=== PATIENT | male | born 1970 | race Caucasian/White ===

== ENCOUNTER 2020-08-30 09:07 | Outpatient (REF) | payer OTHER, SELFPAY ==
[2020-08-30 10:11] LABS: MANUAL DIFF FLAG NO
[2020-08-30 10:14] LABS: Basophils Percent Auto 0.7 % (0-2); Eosinophils Absolute Auto 0.2 X10*3/uL (0.0-0.4); Eosinophils Percent Auto 4.5 % (0-4); Hemoglobin 14.7 g/dl (14.0-18.0); Imm Gran Abs Auto 0.01 X10*3/uL (0.00-0.03); Imm Gran Pct Auto 0.2 % (0.0-0.4); Lymphocytes Absolute Auto 1.5 X10*3/uL (1.2-4.9); Lymphocytes Percent Auto 36.2 % (20-40); Mean Corpuscular HGB Conc 34.2 g/dl (31.0-36.0); Mean Corpuscular Hemoglobin 32.1 pg (27.0-33.0); Mean Corpuscular Volume 93.9 fL (80-98); Mean Platelet Volume 10.6 fL (9.4-12.4); Monocytes Absolute Auto 0.4 X10*3/uL (0.1-1.2); Monocytes Percent Auto 9.2 % (2-11); Neutrophils Absolute Auto 2.1 X10*3/uL (2.0-8.3); Neutrophils Percent Auto 49.2 % (45-73); Platelet Count 238 X10*3/uL (160-400); Red Blood Count 4.58 X10*6/uL (4.60-5.80); Red Cell Distribution Width 11.8 % (11.0-16.0); White Blood Count 4.3 X10*3/uL (4.8-10.8)
[2020-08-30 10:54] LABS: Glucose Urine UA NEG (NEG); Leukocyte Esterase Urine NEG (NEG); Nitrite Urine NEG (NEG); Specific Gravity - Urine 1.025 (1.005-1.025); Urine Blood NEG (NEG); Urine Ketones NEG (NEG); Urine Protein NEG (NEG-TRACE)
[2020-08-30 10:56] LABS: Alanine Aminotransferase 32 U/L (0-40); Albumin Level 4.4 g/dL (3.5-5.0); Alkaline Phosphatase 84 U/L (39-117); Anion Gap 12 (12-20); Aspartate Amino Transferase 20 U/L (5-37); Bilirubin Total 0.4 mg/dL (0.0-1.0); Blood Urea Nitrogen 12 mg/dL (9-16); Calcium 8.6 mg/dL (8.4-10.2); Carbon Dioxide 25 mmol/L (22-29); Chloride 106 mmol/L (96-108); Cholesterol 223 mg/dL; Estimated Glomerular Filt Rate > 60; Glucose Fasting 113 mg/dL (60-99); HDL Cholesterol 63 mg/dL; LDL Cholesterol Calculated 141 mg/dl; Potassium 4.3 mmol/l (3.3-5.1); Sodium 139 mmol/L (135-145); Total Protein 7.1 g/dL (6.5-8.0); Triglycerides 99 mg/dL
[2020-08-30 10:56] LABS: Appearance Urine CLEAR; Color Urine YELLOW
[2020-08-30 11:22] LABS: Prostate Specific Antigen 0.36 ng/mL (<0.05-4.0)
[2020-09-04 13:57] LABS: Testosterone, Free 98.6 pg/mL (35.0-155.0); Testosterone, Total 472 ng/dL (250-1100)
== END 2020-08-30 09:08 | disposition home or self-care (01) ==
LOC: HO.10HDL 09:07
PROVIDERS: Visit Provider Internal Medicine
DX: Z00.00 Encounter for general adult medical examination without abnormal findings (principal); R30.0 Dysuria; R35.1 Nocturia; Z12.5 Encounter for screening for malignant neoplasm of prostate
CPT/HCPCS: 36415; 80053; 80061; 81003; 84153; 84402; 84403; 85025; 87086

== ENCOUNTER → 2022-07-01 13:40 | Outpatient (BNVA) | payer OTHER, SELFPAY | PROVIDERS: PCP Internal Medicine; Visit Provider Physician Assistant Medical | DX: S64.22XA Injury of radial nerve at wrist and hand level of left arm, initial encounter (principal); W18.39XA Other fall on same level, initial encounter | CPT/HCPCS: 73110; 73130; 99203 ==

== ENCOUNTER → 2022-07-10 09:40 | Outpatient (BNVA) | payer OTHER, SELFPAY | PROVIDERS: PCP Internal Medicine; Visit Provider Internal Medicine | DX: S64.22XA Injury of radial nerve at wrist and hand level of left arm, initial encounter (principal); W18.39XA Other fall on same level, initial encounter | CPT/HCPCS: 99213 ==

== ENCOUNTER → 2022-07-24 09:27 | Outpatient (BNVA) | payer OTHER, SELFPAY | PROVIDERS: PCP Internal Medicine; Visit Provider Internal Medicine | DX: S63.502D Unspecified sprain of left wrist, subsequent encounter (principal); W18.39XD Other fall on same level, subsequent encounter | CPT/HCPCS: 99213 ==

== ENCOUNTER 2022-11-19 09:32 | Outpatient (REF) | payer OTHER, SELFPAY ==
[2022-11-19 10:40] LABS: MANUAL DIFF FLAG NO
[2022-11-19 10:42] LABS: Basophils Percent Auto 0.6 % (0-2); Eosinophils Absolute Auto 0.2 X10*3/uL (0.0-0.4); Hematocrit 43.6 % (42.0-52.0); Imm Gran Abs Auto 0.02 X10*3/uL (0.00-0.03); Imm Gran Pct Auto 0.4 % (0.0-0.4); Lymphocytes Absolute Auto 1.8 X10*3/uL (1.2-4.9); Lymphocytes Percent Auto 38.3 % (20-40); Mean Corpuscular HGB Conc 34.4 g/dl (31.0-36.0); Mean Corpuscular Hemoglobin 31.8 pg (27.0-33.0); Mean Corpuscular Volume 92.4 fL (80.0-98.0); Mean Platelet Volume 10.4 fL (9.4-12.4); Monocytes Absolute Auto 0.5 X10*3/uL (0.1-1.2); Monocytes Percent Auto 10.4 % (2-11); Neutrophils Absolute Auto 2.2 x10*3/uL (2.0-8.3); Neutrophils Percent Auto 46.3 % (45-73); Platelet Count 225 X10*3/uL (160-400); Red Blood Count 4.72 X10*6/uL (4.60-5.80); Red Cell Distribution Width 11.8 % (11.0-16.0); White Blood Count 4.7 X10*3/uL (4.8-10.8)
[2022-11-19 11:51] LABS: Alanine Aminotransferase 39 U/L (0-40); Albumin Level 4.4 g/dL (3.5-5.0); Alkaline Phosphatase 81 U/L (39-117); Anion Gap 16 (12-20); Aspartate Amino Transferase 23 U/L (5-37); Bilirubin Total 0.8 mg/dL (0.0-1.0); Blood Urea Nitrogen 11 mg/dL (9-16); Carbon Dioxide 22 mmol/L (22-29); Chloride 106 mmol/L (96-108); Cholesterol 251 mg/dL; Estimated Glomerular Filt Rate > 60; Glucose Fasting 115 mg/dL (60-99); HDL Cholesterol 59 mg/dL; LDL Cholesterol Calculated 169 mg/dl; Potassium 4.4 mmol/L (3.3-5.1); Sodium 140 mmol/L (135-145); Total Protein 6.8 g/dL (6.5-8.0); Triglycerides 118 mg/dL
[2022-11-19 11:57] LABS: Prostate Specific Antigen Scr 0.46 ng/mL (<0.05-4.0)
== END 2022-11-19 09:33 | disposition home or self-care (01) ==
LOC: HO.10HDL 09:32
PROVIDERS: Visit Provider Internal Medicine
DX: Z00.00 Encounter for general adult medical examination without abnormal findings (principal); Z12.5 Encounter for screening for malignant neoplasm of prostate
CPT/HCPCS: 36415; 80053; 80061; 84153; 85025

== ENCOUNTER 2022-11-20 10:35 | Outpatient (REF) | payer OTHER, SELFPAY ==
--- NOTE | ~2022-11-20 | XR_ITS ---
EXAMINATION: XR CHEST CLINICAL INFORMATION: Rule out lesion COMPARISON: Previous chest x-ray most recent January 2016 TECHNIQUE: 2 views of the chest were obtained. FINDINGS: The cardiac and mediastinal contours are normal. The lungs are clear. No pleural effusion or pneumothorax. Degenerative changes of the spine. XR/XR chest 2V IMPRESSION: No evidence for acute disease in the chest.
== END 2022-11-20 10:36 | disposition home or self-care (01) ==
LOC: HO.XRAY 10:35
PROVIDERS: PCP Internal Medicine; Visit Provider Internal Medicine
DX: Z00.00 Encounter for general adult medical examination without abnormal findings (principal)
CPT/HCPCS: 71046

== ENCOUNTER 2023-01-02 10:09 | Outpatient (REF) | payer OTHER, SELFPAY ==
--- NOTE | ~2023-01-02 | FL_ITS ---
EXAMINATION: FL BARIUM SWALLOW CLINICAL INFORMATION: Dysphagia COMPARISON: None available. TECHNIQUE: Barium swallow examination is performed using fluoroscopic evaluation in addition to multiple fluoroscopic spot views. The patient is imaged both upright and prone and using both thick and thin sulfate along with effervescent granules. Fluoroscopy Time: 1.6 minutes DAP: 13.879 Gycm2 Images: 46 FINDINGS: On clinical palpation, there is a probable nodule at the base of right neck. Recommend ultrasound evaluation to exclude thyroid lesion or nodule.. Following oral administration of thick barium and barium-coated turkey as solid food, there Is normal propagation bolus from the oral cavity through the pharynx, esophagus into stomach without any evidence of obstruction, narrowing or stricture. No extrinsic compression seen. On placing patient prone lying, and oral administration of thin barium, there is good distention of the entire esophagus without narrowing or obstruction. No laryngeal penetration or aspiration seen. There is no retention of barium in the valleculae or piriform sinuses. FL/FL barium swallow IMPRESSION: Unremarkable barium swallow exam.
== END 2023-01-02 10:10 | disposition home or self-care (01) ==
LOC: HO.XRAY 10:09
PROVIDERS: PCP Internal Medicine; Visit Provider Internal Medicine
DX: R13.19 Other dysphagia (principal)
CPT/HCPCS: 74220

== ENCOUNTER 2023-03-17 07:01 | Day surgery (SDC) | payer OTHER, SELFPAY ==
--- NOTE | 2023-03-16 13:39 | HO.ANESPROP2 ---
HPI - Anesthesia Eval Consult details Narrative: 52yo M for Upper Endoscopy and Colonoscopy PMFSH Active Problems Active Problems: All Active Problems (Updated 03/16/23 @ 13:00 by Radha Deal RN) Left wrist sprain (Acute ~06/30/22) Past Medical History Medical History (Updated 03/16/23 @ 13:00 by Radha Deal RN) No pertinent past medical history Surgical History Surgical History (Updated 03/16/23 @ 13:00 by Radha Deal RN) No pertinent past surgical history Social History Social History Patient Tobacco Use Status: Never used Tobacco Use of substances other than those prescribed or required for medical reasons: No Are you DNR?: No Advance Directives: No Advance Directives Information Provided: Yes Recently lost weight without trying: No Nutrition Risks: No Nutritional Risk Meds Allergies Allergy/AdvReac Type Severity Reaction Status Date / Time Seasonal Allergies Allergy Unknown Verified 03/16/23 12:52 Home Medications Medication Instructions Recorded Confirmed Last Taken Type tadalafil 5 mg tablet 5 mg PO Q OTHER DAY PRN prn 03/16/23 03/16/23 Unknown History Exam Exam Date and Time: March 16, 2023 133 Pertinent Lab Results Pertinent Lab Results: Laboratory Tests 11/19/22 11/19/22 09:40 09:40 WBC 4.7 L RBC 4.72 Hgb 15.0 Hct 43.6 Plt Count 225 Sodium 140 Potassium 4.4 Chloride 106 Carbon Dioxide 22 BUN 11 Creatinine 0.87 Assessment and Plan Assessment Anesthesia Assessment: Chart Reviewed
[2023-03-17 07:30] VITALS: BMI 30.8
[2023-03-17 07:40] VITALS: BP 135/86; PULSE 70; RESP 16; TEMP 36.2; O2SAT 97
[2023-03-17] MEDS: Lactated Ringers 1,000 ML 100 ML IVCONT (07:51)
--- NOTE | 2023-03-17 08:16 | MHC.SHP ---
Pre-Procedural Eval Section A Date of Service: 03/17/23 Section B Chief Complaint: screening,reflux,dysphagia Details of Present Illness: see H&P no changes Relevant Family History (Specify if Yes): No Relevant Social History: None Present Medications: see Short Stay Collaborative assessment Medical History: No relevant PMH History of Previous Operations: No relevant previous surgery Allergies: Allergies Allergy/AdvReac Type Severity Reaction Status Date / Time Seasonal Allergies Allergy Unknown Verified 03/16/23 12:52 Review of Systems Sugical H&P ROS: Negative: Constitution, Cardiovascular, Respiratory, Neurological, Psychiatric, Hem-Onc, Allergic/Immunologic, Gastrointestinal, Genitourinary, Musculoskeletal, Integumentary, Endocrine and Eyes/Ears/Nose/Throat Exam Surgical H&P Exam: Normal: HEENT, Normal: Heart, Normal: Lungs, Normal: Extremities, Normal: Abdomen, Normal: Skin and Normal: Neurological Plan Diagnosis/Plan: Unchanged I have reviewed the history and physical and performed a pertinent physical examination on my patient. No changes have occurred unless specified. Time Spent With Patient Time: Total time managing care of this patient today ____ minutes.
--- NOTE | 2023-03-17 09:12 | PM.OP ---
Brief Operative Note Date of Service: 03/17/23 Pre-op diagnosis: gerd dysphagia screening Post-op diagnosis: same Procedure: egd colonoscopy Surgeon: Virgilio Nesbitt Anesthesia: MAC Was an Disease Management Nurse used for this Procedure?: No Estimated blood loss (mL): 5 Pathology: other Condition: stable Disposition: PACU
[2023-03-17 09:17] VITALS: BP 109/72; PULSE 86; RESP 18; TEMP 36.3; O2SAT 95
[2023-03-17 09:32] VITALS: BP 122/87; PULSE 64; RESP 16; TEMP 36.1; O2SAT 99
--- NOTE | 2023-03-17 09:40 | OP_ITS ---
DATE OF SERVICE: 03/17/2023 SURGEON: Virgilio Nesbitt MD INDICATIONS: 1. Gastroesophageal reflux disease and dysphagia. 2. Colon cancer screening. PREOPERATIVE DIAGNOSIS: POSTOPERATIVE DIAGNOSIS: PROCEDURE PERFORMED: Upper endoscopy with biopsy, colonoscopy to the terminal ileum with biopsy and snare polypectomy. ESTIMATED BLOOD LOSS: COMPLICATIONS: ANESTHESIA: Medications; monitored anesthesia care. ASSISTANTS: SPECIMENS: DESCRIPTION OF PROCEDURE: History and physical performed. The risks and benefits of the procedure were explained to the patient. Informed consent was obtained. The patient was placed in the left lateral decubitus position. The Olympus videogastroscope was introduced into the esophagus, stomach, and duodenum. Examination was performed. The scope was removed. He was repositioned for colonoscopy. A digital rectal exam was performed and was found to be normal. The Olympus pediatric videocolonoscope was introduced into the rectum, advanced to the cecum without difficulty. The cecum was identified by transillumination, palpation, and identification of ileocecal valve. Examination was performed. The scope was removed. He tolerated both procedures well, returned to Recovery in stable condition. FINDINGS: Upper endoscopy, esophagus; the esophagus showed an irregular EG junction. No stricture was identified. Biopsies were obtained from the EG junction. Stomach: The stomach was normal. Biopsies were obtained from the antrum to evaluate for H pylori. Duodenum: The bulb and 2nd portion were normal. Colonoscopy: The terminal ileum was examined and appeared normal. The visualized colonic mucosa was normal. The quality of the prep was good. In the rectum, there were 2 less than 10 mm polyps, which were biopsied and removed with a cold snare. These appeared hyperplastic. Retroflexed examination was normal. IMPRESSION: 1. Gastroesophageal reflux disease. 2. Dysphagia. 3. Colon polyps. RECOMMENDATION: Follow up with the biopsy results. MD MARY Duong/RAEGAN / [id number]
== END 2023-03-17 09:12 | disposition home or self-care (01) ==
PROVIDERS: PCP Internal Medicine; Visit Provider Internal Medicine Gastroenterology
PROC: (CPT 45385; principal; 2023-03-17 08:10)
DX: Z12.11 Encounter for screening for malignant neoplasm of colon (principal); K62.1 Rectal polyp; R13.10 Dysphagia, unspecified; K21.9 Gastro-esophageal reflux disease without esophagitis; K29.50 Unspecified chronic gastritis without bleeding; Z79.899 Other long term (current) drug therapy
CPT/HCPCS: 45385; 45380; 43239; 88305; 88342; J3010

== ENCOUNTER 2023-12-02 09:44 | Outpatient (REF) | payer OTHER, SELFPAY ==
[2023-12-02 10:34] LABS: MANUAL DIFF FLAG NO
[2023-12-02 10:45] LABS: Basophils Percent Auto 0.7 % (0-2); Eosinophils Absolute Auto 0.2 X10*3/uL (0.0-0.4); Hematocrit 44.2 % (42.0-52.0); Hemoglobin 15.1 g/dl (14.0-18.0); Imm Gran Abs Auto 0.01 X10*3/uL (0.00-0.03); Imm Gran Pct Auto 0.2 % (0.0-0.4); Lymphocytes Absolute Auto 1.7 X10*3/uL (1.2-4.9); Lymphocytes Percent Auto 37.7 % (20-40); Mean Corpuscular HGB Conc 34.2 g/dl (31.0-36.0); Mean Corpuscular Hemoglobin 32.2 pg (27.0-33.0); Mean Corpuscular Volume 94.2 fL (80.0-98.0); Mean Platelet Volume 10.2 fL (9.4-12.4); Monocytes Absolute Auto 0.5 X10*3/uL (0.1-1.2); Monocytes Percent Auto 10.2 % (2-11); Neutrophils Absolute Auto 2.1 x10*3/uL (2.0-8.3); Neutrophils Percent Auto 47.2 % (45-73); Platelet Count 223 X10*3/uL (160-400); Red Blood Count 4.69 X10*6/uL (4.60-5.80); Red Cell Distribution Width 12.2 % (11.0-16.0); White Blood Count 4.5 X10*3/uL (4.8-10.8)
[2023-12-02 10:50] LABS: Appearance Urine Clear; Color Urine Yellow; Glucose Urine UA Negative (Negative); Leukocyte Esterase Urine Negative (Negative); Nitrite Urine Negative (Negative); Specific Gravity - Urine 1.025 (1.005-1.025); Urine Blood Negative (Negative); Urine Ketones Negative (Negative); Urine Protein Negative (Neg-Trace)
[2023-12-02 10:52] LABS: Alanine Aminotransferase 27 U/L (0-40); Albumin Level 4.5 g/dL (3.5-5.0); Alkaline Phosphatase 91 U/L (39-117); Anion Gap 11 (12-20); Aspartate Amino Transferase 20 U/L (5-37); Bilirubin Total 0.6 mg/dL (0.0-1.0); Blood Urea Nitrogen 12 mg/dL (9-16); Carbon Dioxide 27 mmol/L (22-29); Chloride 108 mmol/L (96-108); Cholesterol 226 mg/dL (<200); Estimated Glomerular Filt Rate > 60; Glucose Fasting 112 mg/dL (60-99); HDL Cholesterol 65 mg/dL (>40); LDL Cholesterol Calculated 145 mg/dL (<100); Potassium 4.6 mmol/L (3.3-5.1); Sodium 141 mmol/L (135-145); Total Protein 7.4 g/dL (6.5-8.0); Triglycerides 80 mg/dL (<150)
== END 2023-12-02 09:45 | disposition home or self-care (01) ==
LOC: HO.10HDL 09:44
PROVIDERS: Visit Provider Internal Medicine
DX: Z12.5 Encounter for screening for malignant neoplasm of prostate (principal); E78.00 Pure hypercholesterolemia, unspecified; R53.83 Other fatigue; R35.1 Nocturia
CPT/HCPCS: 36415; 80053; 80061; 81003; 84153; 84402; 84403; 85025

== ENCOUNTER 2024-09-26 12:20 | Outpatient (REF) | payer OTHER, BC, SELFPAY ==
--- OUTSIDE RECORDS SUMMARY | 2024-09-26 12:22 | XMS_ITS ---
Author Organization [facility] Address [address] [place] [address] Care Team Providers Care Cocktail Lounge Manager Name Role Phone Ketan Acevedo MD Primary Care Provider UnavailVirgilio Veliz Jr REASON FOR VISIT colon screening Encounters Encounter Location Date Provider Diagnosis [facility] [address] [place] [address] 04/30/2023 Virgilio Nesbitt Jr PLAN OF TREATMENT No Information
--- OUTSIDE RECORDS SUMMARY | 2024-09-26 12:22 | XMS_ITS | Patient Health Record ---
Author Organization [facility] Address [address] [place] [address] Care Team Providers Care Production Assembly Supervisor Name Role Phone Ketan Acevedo MD Primary Care Provider Virgilio Franco Jr Unavailable ALLERGIES Allergen (clinical drug ingredient) Drug/Non Drug Allergy documented on EMR Reaction Allergy Type Onset Date Status seasonal (uncoded) Unknown Allergy A ctive REASON FOR REFERRAL No Information MEDICATIONS Medication SIG (Take, Route, Frequency, Duration) Notes Start Date End Date Status Tadalafil 5 MG Oral for 40 Act carol MiraLax (colon prep) 8.3 ounce ((238) grams mixed with Gatorade or Crystal Light orally begin at 5:00 p.m. the day before the procedure for 1 day 02/09/2023 Active IMMUNIZATIONS Vaccine Route Administration Date Status Comme nts Influenza Unknown 07/29/2022 Administered SOCIAL HISTORY Tobacco Use: Social History Observation Description Date Details (start date - stop date) Never Smoker NA - NA Sex Assigned At : Social History Observation Description Sex Assigned At Unknown Tobacco Use/Smoking Question Answer Notes Patient is a nonsmoker Alcohol Screen Question Answer Notes Did you have a drink contain ing alcohol in the past year? Yes How often did you have a dri nk containing alcohol in the past year? 4 or more times a week (4 points) How many drinks did you have on a typical day when you were drinking in the past year? 1 or 2 drinks (0 point) How often did you have 6 or more drinks on one occasion in the past year? Less than monthly (1 point) Points 5 Interpretation Positive PROBLEMS Problem Type ICD Code Onset Dates Problem Status W/U Status Risk SNOMED Code Notes Problem Dysphagia, unspecified type (R13.10) Active confirmed 87704971 Problem Gastroesophageal reflux disease, unspecified whether esophagitis present (K21.9) Active confirmed 733588928 Problem Colon cancer screening (Z12.11) Active confirmed 740790566 Problem Dysphagia (R13.10) Active confirmed Dys phagia (74090336) Problem Esophageal reflux (K21.9) Active confirmed Esophageal reflux (064490748) PLAN OF TREATMENT Future Test Test Name Order Date UPPER GI ENDOSCOPY 02/09/2023 COLONOSCOPY 02/09/2023 Insurance Providers Payer Name Payer Address Payer Phone Subscriber Number Group Number Insured Name Patient Relationship to Insured Coverage Start Date Coverage End Date [facility] [address] [facility] [phone] [id number] KENNEDY LANDRY Self - patient is the insured MEDICAL (GENERAL) HISTORY Surgical History Surgery Date(Month/Year)
== END 2024-09-26 12:21 | disposition home or self-care (01) ==
LOC: HO.HOSX 12:20
PROVIDERS: Visit Provider Orthopaedic Surgery
DX: M25.561 Pain in right knee (principal); M25.562 Pain in left knee; M23.91 Unspecified internal derangement of right knee
CPT/HCPCS: 73562; 99202

== ENCOUNTER 2024-09-26 13:57 | Outpatient (AMB) | payer OTHER, BC, SELFPAY ==
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
== END 2024-09-26 14:39 | disposition home or self-care (01) ==
PROVIDERS: PCP Internal Medicine; Visit Provider Orthopaedic Surgery
DX: M23.91 Unspecified internal derangement of right knee (principal)
CPT/HCPCS: 99204

== ENCOUNTER 2024-09-28 19:49 | Outpatient (REF) | payer OTHER, BC, SELFPAY ==
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
--- OUTSIDE RECORDS SUMMARY | 2024-09-28 19:51 | XMS_ITS | Patient Health Record ---
Author Organization [facility] Address [address] [place] [address] Care Team Providers Care Leadership Development Consultant Name Role Phone Ketan Acevedo MD Primary [...] Problem Dysphagia, unspecified type (R13.10) Active confirmed 11694204 Problem Gastroesophageal reflux disease, unspecified whether esophagitis present (K21.9) Active confirmed 127883822 Problem Colon cancer screening (Z12.11) Active confirmed 604530193 Problem Dysphagia (R13.10) Active confirmed Dys phagia (18301762) Problem Esophageal reflux (K21.9) Active confirmed Esophageal reflux (706545053) PLAN OF TREATMENT Future Test Test Name Order Date UPPER GI ENDOSCOPY 02/09/2023 COLONOSCOPY 02/09/2023 Insurance Providers Payer Name Payer Address Payer Phone Subscriber Number Group Number Insured Name Patient Relationship to Insured Coverage Start Date Coverage End Date [facility] [address] [facility] [phone] [id number] KENNEDY LANDRY Self - patient is the insured MEDICAL (GENERAL) HISTORY Surgical History Surgery Date(Month/Year)
--- OUTSIDE RECORDS SUMMARY | 2024-09-28 19:51 | XMS_ITS ---
Author Organization [facility] Address [address] [place] [address] Care Team Providers Care Geriatric Psychiatrist Name Role Phone Ketan Acevedo MD Primary Care Provider UnavailVirgilio Veliz Jr REASON FOR VISIT colon screening Encounters Encounter Location Date Provider Diagnosis [facility] [address] [place] [address] 04/30/2023 Virgilio Nesbitt Jr PLAN OF TREATMENT No Information
== END 2024-09-28 19:50 | disposition home or self-care (01) ==
LOC: HO.MRI 19:49
PROVIDERS: PCP Internal Medicine; Visit Provider Orthopaedic Surgery
DX: M23.91 Unspecified internal derangement of right knee (principal)
CPT/HCPCS: 73721

== ENCOUNTER 2024-10-20 14:11 | Outpatient (AMB) | payer OTHER, BC, SELFPAY ==
--- NOTE | 2024-10-20 14:25 | MHC.OFFVIS ---
Intake Visit Reasons: OV - Right Knee MRI Review Intake Note: Vitaly is a 54 year old male who presents today for a Right Knee MRI review. He reports that he has some good days and some bad days but typically pain is worse at the end of the day s/p activity. Allergies Seasonal Allergies Allergy (Verified 09/26/24 14:13) Unknown HPI HPI OV - Right Knee MRI Review: Details: Vitaly is a 54 year old male who presents today for a Right Knee MRI review. He reports that he has some good days and some bad days but typically pain is worse at the end of the day s/p activity. This has been ongoing for years. Initially I saw on 4 or 5 years ago and we had elected to treat it nonoperatively. It was okay for a few years but has worsened markedly over the past year. He now describes pain on a daily basis. The pain localized to the medial aspect of his right knee. 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 No effusion. 0-125 degrees of motion. Mildly positive medial Junaid's. Results Reviewed Results Reviewed: I personally reviewed the MR images. IMPRESSION: 1. Complex tearing of the medial meniscus body and posterior horn with a meniscal flap displaced into the meniscofemoral recess anteriorly. 2. Tafw-mh-tbwshgzp medial and mild lateral compartment osteoarthritis with a trace joint effusion. 3. Mild mucoid degeneration of the ACL. Assessment & Plan Assessment & Plan (1) Tear of medial meniscus of right knee: Code(s): S83.241A - Other tear of medial meniscus, current injury, right knee, initial encounter Category: Medical Plan: This is a 54-year-old gentleman with a medial meniscal tear of his right knee. I reviewed his MRI which has worsened compared to prior. We had deferred surgery years ago and it has continued to cause him pain. 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 I discussed with him risks, benefits and alternatives of surgery including to, but not limited to, the risk of infection, stiffness, incomplete symptom resolution, exacerbation of his pre-existing osteoarthritis. He expressed understanding and we will proceed forward accordingly. Coding Level of Care Code Est Pt Level 4 (31667) Diagnoses Tear of medial meniscus of right knee S83.241A
--- OUTSIDE RECORDS SUMMARY | 2024-10-20 16:30 | XMS_ITS ---
Author Organization [facility] Address [address] [place] [address] Care Team Providers Care Table Top Tile Setter Name Role Phone Ketan Acevedo MD Primary Care Provider UnavailVirgilio Veliz Jr [phone] REASON FOR VISIT colon screening Encounters Encounter Location Date Provider Diagnosis [facility] [address] [place] [address] 04/30/2023 Virgilio Nesbitt Jr PLAN OF TREATMENT No Information
--- OUTSIDE RECORDS SUMMARY | 2024-10-20 16:30 | XMS_ITS | Patient Health Record ---
Author Organization [facility] Address [address] [place] [address] Care Team Providers Care Agency Sales Director Name Role Phone Ketan Acevedo MD Primary [...] Problem Dysphagia, unspecified type (R13.10) Active confirmed 52153542 Problem Gastroesophageal reflux disease, unspecified whether esophagitis present (K21.9) Active confirmed 706960780 Problem Colon cancer screening (Z12.11) Active confirmed 357058251 Problem Dysphagia (R13.10) Active confirmed Dys phagia (48256481) Problem Esophageal reflux (K21.9) Active confirmed Esophageal reflux (840097205) PLAN OF TREATMENT Future Test Test Name Order Date UPPER GI ENDOSCOPY 02/09/2023 COLONOSCOPY 02/09/2023 Insurance Providers Payer Name Payer Address Payer Phone Subscriber Number Group Number Insured Name Patient Relationship to Insured Coverage Start Date Coverage End Date [facility] [address] [facility] [phone] [id number] KENNEDY LANDRY Self - patient is the insured MEDICAL (GENERAL) HISTORY Surgical History Surgery Date(Month/Year)
== END 2024-10-20 14:47 | disposition home or self-care (01) ==
PROVIDERS: PCP Internal Medicine; Visit Provider Orthopaedic Surgery
DX: S83.241A Other tear of medial meniscus, current injury, right knee, initial encounter (principal)
CPT/HCPCS: 99214

== ENCOUNTER → 2024-10-20 14:11 | Outpatient (BNVA) | payer OTHER, BC, SELFPAY | PROVIDERS: PCP Internal Medicine; Visit Provider Orthopaedic Surgery | DX: S83.241A Other tear of medial meniscus, current injury, right knee, initial encounter (principal) | CPT/HCPCS: 99212 ==

== ENCOUNTER 2024-11-09 11:42 | Day surgery (SDC) | payer OTHER, SELFPAY ==
--- NOTE | 2024-11-08 10:11 | P.CONAN_ITS ---
Documented by User: Sarah Mckeon NP 11/08/24 10:12 HPI - Anesthesia Eval Consult details Narrative: 54yo M for Knee Arthroscopy [facility] Active Problems Active Problems: All Active Problems Tear of medial meniscus of right knee (Acute) Locking of right knee (Acute) Left wrist sprain (Acute ~06/30/22) Past Medical History Medical History (Updated 11/09/24 @ 12:57 by Alee Vu RN) GERD (gastroesophageal reflux disease) Surgical History Surgical History (Updated 11/09/24 @ 12:56 by Alee Vu RN) Hx of colonoscopy History of esophagogastroduodenoscopy Social History Social History (Updated 09/26/24 @ 14:13 by Leona Shafer CMA) Patient Tobacco Use Status: Never used Tobacco Use of substances other than those prescribed or required for medical reasons: No Are you DNR?: No Advance Directives: No Advance Directives Information Provided: Yes Current occupational status: employed 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 Allergies Allergy/AdvReac Type Severity Reaction Status Date / Time Seasonal Allergies Allergy Unknown Verified 11/09/24 12:53 Home Medications ?Medication ?Instructions ?Recorded ?Confirmed ?Last Taken ?Type tadalafil 5 mg tablet 5 mg PO Q OTHER DAY PRN prn 03/16/23 11/09/24 11/05/24 History omeprazole 20 mg capsule,delayed 20 mg PO DAILY 09/26/24 11/09/24 11/09/24 09:00 History release Assessment and Plan Assessment Anesthesia Assessment: Chart Reviewed Documented by User: Johanna Armando MD 11/09/24 14:02 [facility] Past Medical History Medical History (Updated 11/09/24 @ 12:57 by Alee Vu RN) GERD (gastroesophageal reflux disease) Family History Family history of problems with anesthesia: No Surgical History Surgical History (Updated 11/09/24 @ 12:56 by Alee Vu RN) Hx of colonoscopy History of esophagogastroduodenoscopy History of Problems with Anesthesia: No Social History Social History (Updated 09/26/24 @ 14:13 by Leona Shafer CMA) Patient Tobacco Use Status: Never used Tobacco Use of substances other than those prescribed or required for medical reasons: No Are you DNR?: No Advance Directives: No Advance Directives Information Provided: Yes Current occupational status: employed 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 Allergies Allergy/AdvReac Type Severity Reaction Status Date / Time Seasonal Allergies Allergy Unknown Verified 11/09/24 12:53 Home Medications ?Medication ?Instructions ?Recorded ?Confirmed ?Last Taken ?Type tadalafil 5 mg tablet 5 mg PO Q OTHER DAY PRN prn 03/16/23 11/09/24 11/05/24 History omeprazole 20 mg capsule,delayed 20 mg PO DAILY 09/26/24 11/09/24 11/09/24 09:00 History release Exam Airway Mallampati Class: II (caps laterally) TM Dist: >3cm Neck ROM: Full Heart: rrr Lungs: cta Assessment and Plan Assessment Anesthesia Assessment: Anesthesia Plan Discussed Final Anesthetic Review Family History of Problems with Anesthesia: No History of Problems with Anesthesia: No NPO: Yes ASA Class: II Final Preanesthetic Review: No Changes in Pt Med Stat, Meds/Allgs Chart Reviewed and Consent Obtained/Reviewed Patient Risk: Low Procedure Risk: Low Anesthetic Plan Anesthetic Plan: GA Disposition: Standard PACU
[2024-11-09] VITALS (12 sets, daily range): BP systolic 115–136; BP diastolic 70–96; PULSE 60–74; RESP 10–18; TEMP 36.6–36.7; O2SAT 92–98; BMI 30.8
[2024-11-09] MEDS: Lactated Ringers 1,000 ML 100 ML IVCONT (13:09)
--- OUTSIDE RECORDS SUMMARY | 2024-11-09 14:09 | XMS_ITS | Patient Health Record ---
Author Organization [facility] Address [address] [place] [address] Care Team Providers Care Any Commodity Buyer Name Role Phone Ketan Acevedo MD Primary [...] Problem Dysphagia, unspecified type (R13.10) Active confirmed 16722250 Problem Gastroesophageal reflux disease, unspecified whether esophagitis present (K21.9) Active confirmed [id number] Problem Colon cancer screening (Z12.11) Active confirmed [id number] Problem Dysphagia (R13.10) Active confirmed Dys phagia (15783607) Problem Esophageal reflux (K21.9) Active confirmed Esophageal reflux (630408492) PLAN OF TREATMENT Future Test Test Name Order Date UPPER GI ENDOSCOPY 02/09/2023 COLONOSCOPY 02/09/2023 Insurance Providers Payer Name Payer Address Payer Phone Subscriber Number Group Number Insured Name Patient Relationship to Insured Coverage Start Date Coverage End Date [facility] [address] [facility] [phone] [id number] KENNEDY LANDRY Self - patient is the insured MEDICAL (GENERAL) HISTORY Surgical History Surgery Date(Month/Year)
--- NOTE | 2024-11-09 14:20 | MHC.SHP ---
Pre-Procedural Eval Section A - 24 Hr Update-Section A only Date of Service: 11/09/24 The patient is an INPATIENT: No Changes since office visit: No Cold of Flu in the past 2 weeks, No New Medical Problems, No Changes in Medication and No Patient answered all questions The patient has been examined within 24 hours of the surgical procedure. The History & Physical has been completed within 30 days and I have reviewed it.: Yes Section B - Complete if H&P > 30 days Chief Complaint: Complex tear of medial meniscus, current injury, Allergies: Allergies Allergy/AdvReac Type Severity Reaction Status Date / Time Seasonal Allergies Allergy Unknown Verified 11/09/24 12:53 Plan I have reviewed the history and physical and performed a pertinent physical examination on my patient. No changes have occurred unless specified. Time Spent With Patient Time: Total time managing care of this patient today ____ minutes.
[2024-11-09] MEDS: Ketorolac Tromethamine 30 MG/ML VIAL IVPUSH (15:30)
[2024-11-09] MEDS: Acetaminophen 1,000 MG/100 ML PIGGYBACK 400 MG IV (15:40)
[2024-11-09] MEDS: fentaNYL citrate/PF 100 MCG/2 ML VIAL 50 MCG IVPUSH ×2 (15:50→16:15)
[2024-11-09] MEDS: oxyCODONE HCl Immed Release 5 MG TABLET PO (15:55)
--- NOTE | 2024-11-17 16:41 | P.OP_ITS ---
Operative Note Operative Note Date of Service: 11/09/24 Narrative: Date of Service: 11/09/24 Pre-op diagnosis: Right medial meniscus tear Post-op diagnosis: same Procedure: Partial meniscectomy right knee Implants: none Surgeon: Chuckie Quiroz MD Was an Log Loader Helper used for this Procedure?: No Estimated blood loss (mL): 5 Tourniquet time (min): 20 IV fluids (mL): 750 Pathology: none sent Condition: stable Disposition: PACU Procedure in detail: Patient was brought to the operating room placed supine on the arthroscopic table and prepped and draped in standard sterile fashion. A time-out was called to identify proper site proper procedure proper surgeon and IV antibiotics per weight were administered. I began by exsanguinating the limb and insufflating tourniquet to 300 mm Hg. Then made a standard anterolateral stab incision. The knee was insufflated with water and 30 degree arthroscope was placed. There was grade 1 fibrillations of the patella but overall suprapatellar pouch and the gutters were clean. I descended into the medial compartment where I made my medial portal under direct visualization. There was obvious of complex tear of the posterior horn of the medial meniscus. The root was intact and there was grade 1 changes in the tibial plateau but minimal. I used a combination of biter shaver and cautery to remove unstable portions of the meniscus. Approximately 40% of the meniscal volume was removed. Once I was satisfied with this the ACL was examined and found to be intact and the lateral compartment also was without the need for intervention. I then removed all instrumentation and closed the portals with skin glue. 25 mL of 2% Marcaine with epinephrine was injected into the joint and the surrounding soft tissues. Patient was then placed in sterile dressing extubated brought recovery room stable condition. There were no known complications.
== END 2024-11-09 17:00 | disposition home or self-care (01) ==
LOC: HO.SSS 11:43
PROVIDERS: PCP Internal Medicine; Visit Provider Orthopaedic Surgery
PROC: (CPT 29870; principal; 2024-11-09 14:20)
DX: S83.231A Complex tear of medial meniscus, current injury, right knee, initial encounter (principal); M17.11 Unilateral primary osteoarthritis, right knee; M23.611 Other spontaneous disruption of anterior cruciate ligament of right knee; J30.2 Other seasonal allergic rhinitis; Z79.899 Other long term (current) drug therapy; X58.XXXA Exposure to other specified factors, initial encounter; Y93.9 Activity, unspecified; Y92.9 Unspecified place or not applicable; Y99.8 Other external cause status
CPT/HCPCS: 29881; J0131; J0171; J0690; J1100; J1885; J2003; J2250; J2371; J2405; J2704; J2795; J3010

== ENCOUNTER → 2024-11-09 11:42 | Outpatient (BNV) | payer OTHER, SELFPAY | PROVIDERS: PCP Internal Medicine; Visit Provider Orthopaedic Surgery | DX: S83.231A Complex tear of medial meniscus, current injury, right knee, initial encounter (principal) | CPT/HCPCS: 29881 ==

== ENCOUNTER 2024-11-15 14:19 | Outpatient (AMB) | payer OTHER, BC, SELFPAY ==
--- NOTE | 2024-11-15 14:32 | A.OFFVIS_ITS ---
Intake Visit Reasons: PO RT knee 11/09/24 NE Intake Note: Vitaly is a 54 year old male who presents today for a post op appointment s/p right knee 11/09/24 NE. Patient reports he is still having pain in his calf since surgery. He mentions that he still is having swelling his his knee. Allergies Seasonal Allergies Allergy (Verified 11/15/24 14:34) Unknown HPI HPI PO RT knee 11/09/24 NE: Details: Mr. Todd is a 54-year-old male who presents to the office today for routine follow-up status post right knee arthroscopy with partial medial meniscectomy performed on 11/09/[address] Quiroz. While the office today he does report some soreness and stiffness within the right knee. Additionally, he does report calf pain and cramping. He is using 1 crutch to assist with ambulation. 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 Steri-Strips intact. Range of motion 20-90 degrees. Positive Homans. Assessment & Plan Assessment & Plan (1) S/P right knee arthroscopy: Code(s): Z98.890 - Other specified postprocedural states Category: Surgical (2) Swelling of calf: Code(s): M79.89 - Other specified soft tissue disorders Category: Medical (3) Right calf pain: Code(s): M79.661 - Pain in right lower leg Category: Medical Plan Mr. Todd is a 54-year-old male who presents to the office today for routine follow-up status post right knee arthroscopy with partial medial meniscectomy performed on 11/09/[address] Quiroz. While the office today he does report some soreness and stiffness within the right knee. Additionally, he does report calf pain and cramping. He is using 1 crutch to assist with ambulation. While in the office today I did discuss obtaining a stat ultrasound to rule out DVT in the right lower extremity as the patient is experiencing calf pain and cramping after surgery. A stat ultrasound was ordered. I also placed an order for physical therapy which the patient would like to attend an outside facility to work on range of motion and gait training. An out-of-work note has been given to the patient until follow-up. Patient will follow up in 4 weeks, sooner if needed. Orders: Orders US venous duplex LE RT Today M79.661 - Pain in right lower leg, M79.89 - Other specified soft tissue disorders, Z98.890 - Other specified postprocedural states PT Evaluation and Treatment Today S83.241A - Other tear of medial meniscus, current injury, right knee, initial encounter, Z98.890 - Other specified postprocedural states Coding Level of Care Code Global (00064) Diagnoses S/P right knee arthroscopy Z98.890 Swelling of calf M79.89 Right calf pain M79.661
== END 2024-11-15 15:06 | disposition home or self-care (01) ==
PROVIDERS: PCP Internal Medicine; Visit Provider Physician Assistant
DX: Z98.890 Other specified postprocedural states (principal); M79.89 Other specified soft tissue disorders; M79.661 Pain in right lower leg
CPT/HCPCS: 99024

== ENCOUNTER → 2024-11-15 14:19 | Outpatient (BNVA) | payer OTHER, BC, SELFPAY | PROVIDERS: PCP Internal Medicine; Visit Provider Physician Assistant | DX: S83.241D Other tear of medial meniscus, current injury, right knee, subsequent encounter (principal); M79.89 Other specified soft tissue disorders; M79.661 Pain in right lower leg; X58.XXXD Exposure to other specified factors, subsequent encounter; Z98.890 Other specified postprocedural states | CPT/HCPCS: 99212 ==

== ENCOUNTER 2024-11-18 13:12 | Outpatient (REF) | END 2024-11-18 13:13 | disposition home or self-care (01) | LOC: HO.US 13:12 | DX: M79.661 Pain in right lower leg (principal); M79.89 Other specified soft tissue disorders; Z98.890 Other specified postprocedural states | CPT/HCPCS: 93971 ==

== ENCOUNTER → 2024-11-18 13:14 | Outpatient (BNV) | payer OTHER, SELFPAY | PROVIDERS: PCP Internal Medicine; Visit Provider Radiology Diagnostic Radiology | DX: M79.661 Pain in right lower leg (principal) | CPT/HCPCS: 93971 ==

== ENCOUNTER 2024-12-21 12:53 | Outpatient (AMB) | payer OTHER, SELFPAY ==
--- NOTE | 2024-12-21 12:56 | A.OFFVIS_ITS ---
Intake Visit Reasons: PO - RT knee 11/09/24 NE Intake Note: Vitaly is a 54 year old male who presents today for a post op appointment s/p right knee 11/09/24 NE. Patient reports he is doing very well, he is not using his cane. He has been working with PT 3 times a week and performing the exercises at home. Patient notices having some soreness at the end or the day and some pain when he over does it. Allergies Seasonal Allergies Allergy (Verified 12/21/24 13:02) Unknown HPI HPI PO - RT knee 11/09/24 NE: Details: Mr. Todd this is a 54-year-old male who presents to the office today status post right knee arthroscopy performed on 11/09/[address] Quiroz for a partial medial meniscectomy. Patient has been working with physical therapy. 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 NVI. Assessment & Plan Assessment & Plan (1) S/P right knee arthroscopy: Code(s): Z98.890 - Other specified postprocedural states Category: Surgical Plan Mr. Todd this is a 54-year-old male who presents to the office today status post right knee arthroscopy performed on 11/09/[address] Quiroz for a partial medial meniscectomy. Patient has been working with physical therapy and will continue to do so. 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 A work note was provided to him all the office today. He will follow up in 4 weeks for [id number] check, sooner if needed. Coding Level of Care Code Global (81462) Diagnoses S/P right knee arthroscopy Z98.890
--- OUTSIDE RECORDS SUMMARY | 2024-12-21 14:57 | XMS_ITS | Patient Health Record ---
Author Organization [facility] Address [address] [place] [address] Care Team Providers Care Movers Name Role Phone Ketan Acevedo MD Primary Care Provider Virgilio Franco Jr Unavailable [phone] Allergies Allergen (clinical drug ingredient) Drug/Non Drug Allergy documented on EMR Reaction Allergy Type Onset Date Status seasonal (uncoded) Unknown Allergy A ctive Reason For Referral No Information Medications Medication SIG (Take, Route, Frequency, Duration) Notes Start Date End Date Status Tadalafil 5 MG Oral for 40 Act carol MiraLax (colon prep) 8.3 ounce ((238) grams mixed with Gatorade or Crystal Light orally begin at 5:00 p.m. the day before the procedure for 1 day 02/09/2023 Active Immunizations Vaccine Route Administration Date Status Comme nts Influenza Unknown 07/29/2022 Administered Social History Tobacco Use: Social History Observation Description Date Details (start date - stop date) Never Smoker NA - NA Tobacco Use/Smoking Question Answer Notes Patient is [...] monthly (1 point) Points 5 Interpretation Positive Problems Problem Type SNOMED Code ICD Code Onset Dates Problem Status W/U Status Risk Notes Problem [id number] Colon cancer screening (Z12.11) Active confirmed Problem Esophageal reflux (174519787) Esophageal reflux (K21.9) Active confirmed Problem Dysphagia (05631027) Dysphagia (R13.10) Active confirmed Problem 99675748 Dysphagia, unspecified type (R13.10) Active confirmed Problem 404726003 Gastroesophageal reflux disease, unspecified whether esophagitis present (K21.9) Active confirmed Plan Of Treatment Future Test Test Name Order Date UPPER GI ENDOSCOPY 02/09/2023 COLONOSCOPY 02/09/2023 Insurance Providers Payer Name Payer Address Payer Phone Subscriber Number Group Number Insured Name Patient Relationship to Insured Coverage Start Date Coverage End Date [facility] [address] [place] [phone] [id number] KENNEDY LANDRY Self - patient is the insured Medical (General) History Surgical History Surgery Date(Month/Year)
== END 2024-12-21 13:41 | disposition home or self-care (01) ==
LOC: HO.HOS 12:54
PROVIDERS: PCP Internal Medicine; Visit Provider Physician Assistant
DX: Z98.890 Other specified postprocedural states (principal)
CPT/HCPCS: 99024

== ENCOUNTER → 2024-12-21 12:53 | Outpatient (BNVA) | payer OTHER, SELFPAY | PROVIDERS: PCP Internal Medicine; Visit Provider Physician Assistant | DX: Z47.89 Encounter for other orthopedic aftercare (principal) | CPT/HCPCS: 99212 ==

== ENCOUNTER 2025-01-19 11:43 | Outpatient (AMB) | payer OTHER, SELFPAY ==
--- NOTE | 2025-01-19 11:48 | A.OFFVIS_ITS ---
Intake Visit Reasons: PO - RT knee 11/09/24 NE Intake Note: Vitaly is a 54 year old male who presents today for a ROM check s/p right knee 11/09/24 NE. Patient reports he is doing very well. 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 He has 2 more sessions left with PT. Allergies Seasonal Allergies Allergy (Verified 01/19/25 11:50) Unknown HPI HPI PO - RT knee 11/09/24 NE: Details: Mr. Todd is a 54-year-old male who presents the office today for follow-up status post right knee arthroscopy on 11/09/[address] Quiroz. Overall he is doing very well. He has regained full range of motion and is looking to return to work full-time regular duty. 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 NVI. Assessment & Plan Assessment & Plan (1) Tear of medial meniscus of right knee: Code(s): S83.241A - Other tear of medial meniscus, current injury, right knee, initial encounter Category: Medical (2) S/P right knee arthroscopy: Code(s): Z98.890 - Other specified postprocedural states Category: Surgical Plan Mr. Todd is a 54-year-old male who presents the office today for follow-up status post right knee arthroscopy on 11/09/[address] Quiroz. Overall he is doing very well. He has regained full range of motion and is looking to return to work full-time regular duty. While the office today patient was given a return to work no for full-time regular duty beginning tomorrow for 01/20/25. He will follow up with Orthopedics p.r.n., sooner if needed. Coding Level of Care Code Global (91939) Diagnoses Tear of medial meniscus of right knee S83.241A S/P right knee arthroscopy Z98.890
--- OUTSIDE RECORDS SUMMARY | 2025-01-19 14:18 | XMS_ITS | Encounter Summary ---
Author Name [facility] Organization [facility] Address [address] [place], [place] [id number] Selected Encounter This section includes the information on record at [place] for the Encounter. Date/Time Encounter Type Encounter Description Reason Pro vider Source Jan 18, 2025 12:00 AM Outpatient Encounter EVENT (HISTORICAL) IHE Encounter Template Text not used by [place] Plan of Treatment: Future Appointments (+ 6 months) and Future Tests (+/- 45 days) The Plan of Treatment section includes future care activities for the patient from all [place] treatmentfacilities. This section includes future appointments and future orders which are active, pending or scheduled. Future Appointments This section includes appointments that were scheduled to occur 6 months from the date of the Encounter, up to a maximum of 20 appointments. The data comes from all [place] treatment facilities. Appointment Date/Time Appointment Type Appointme nt Facility Name Jan 26, 2025 01:00 PM AMBULATORY - NONE [facility] Jan 26, 2025 01:45 PM [facility] March 08, 2025 09:45 AM [facility] - [facility]IC[facility] March 08[facility] 2025 10:00 AM [facility] Active, Pending, and Scheduled Orders This section includes a listing of several types of active, pending, and scheduled orders, including clinic medications orders, diagnostic test orders, procedure orders and consult orders; where the start date of the order is 45 days before the date of the Encounter or 45 days after the date of theEncounter. The data comes from all [place] treatment facilities. Test Date/Time Test Type Test Details Facility Name Jan 18, 2025 10:52 AM Consult Order EKG TRACIN G/SPOPC OUTPT Cons [facility] Jan 18, 2025 10:52 AM Procedure Order PULMONARY FUNCTION TEST CP PULMONARY FUNCTION TEST Proc [facility] Jan 26, 2025 01:00 PM Imaging - Ultrasou nd Order KIDNEY AND BLADDER ULTRASOUND [facility] Jan 26, 2025 01:45 PM Imaging - General Radiology Order CHEST (3 VIEWS) [facility] Social History: Smoking Status (Most current) and Tobacco Use (All prior to encounter date) This section includes the most current, and the historical, smoking and tobacco- related health factors from the [place] facility where the Encounter took place. Current Smoking Status This section includes the most current smoking, or tobacco-related health factor, from the [place] facility where the Encounter took place. Date/Time Current Smoking Status Comment Facil ity Jan 18, 2025 10:06 AM CO-TOBACCO NEVER U SED CIGARETTES [facility] Tobacco Use History This section includes a history of the smoking, or tobacco-related health factors, that were collected on or before the date of the Encounter. The data comes from the [place] facility where the Encounter took place. Date/Time Smoking Status/Tobacco Use Comment F acility Jan 18, 2025 10:06 AM CO-TOBACCO NEVER U SED [facility]
--- OUTSIDE RECORDS SUMMARY | 2025-01-19 14:18 | XMS_ITS | Continuity of Care Document ---
Author Name [facility] Organization [facility] Care Team Providers Care Order Puller Name Role Phone [facility] Unavailable Unavailable Problems Combined list of problems from Department of Defense and Veterans Affairs facilities. It does not include entries that were removed or entered in error. Problem Status Onset Date Problem Type Date of Resolution Comments Source Benign prostatic hyperplasia Active Condition Jan 18, 2025 Entered By: JAVIER AZUL Comment: versus Bladder Outlet Obstruction; +Obstruct Sx (frequency, incomplte emptying bladder) CUCUMBER Bilateral hearing loss Active Condition CUCUMBER Derangement of medial meniscus Active Condition Jan 18, 2025 Entered By: JAVIER AZUL Comment: s/p Arthroscopy and Partial Meniscectomy, R Knee OCT 2024 CUCUMBER Erectile dysfunction Active Condition Jan 18, 2025 Entered By: JAVIER AZUL Comment: [employer] CUCUMBER Exposure to potentially hazardous substance Active Condition Jan 18, 2025 Entered By: JAVIER AZUL Comment: Various and Numerous Exposures; Jet Fuels, Solvents, etc., etc.Jan 18, 2025 Entered By: JAVIER AZUL Comment: He Will Think About What Claims He Wants to File For; Does Get SOB w/ Exertion CUCUMBER Gastroesophageal reflux disease Active Condition Jan 18, 2025 Entered By: JAVIER AZUL Comment: GERD CUCUMBER Migraine aura without headache Active Condition Jan 18 Entered By: JAVIER AZUL Comment: Since 2023, Frequency of GONSALEZ's Has Subsided (now just 3-4 times a yr);Jan 18, 2025 Entered By: JAVIER AZUL Comment: Currently, as of FEB 03: Ibuprofen Suffices to Suppress GONSALEZ (on Imitrex in past) CUCUMBER Posttraumatic stress disorder Active Condition Jan 18, 2025 Entered By: JAVIER AZUL Comment: [facility]; Declines Need to See Someone in [place] [facility] Screening for malignant neoplasm of colon done Active Condition Jan 18, 2025 Entered By: JAVIER AZUL Comment: Screen Colonoscopy MARCH 2023: +Benign PolyposisApr 2024 Entered By: JAVIER AZUL Comment: repeat 2027 CUCUMBER seasonal allergiy Active Condition Ap r 2024 Entered By: JAVIER AZUL Comment: Seasonal Allergies; Uses Claritin-D CUCUMBER Under care of doctor Active Condition Jan 18, 2025 Entered By: JAVIER AZUL Comment: Private PCP Dr Acevedo [phone] CUCUMBER Diagnosis: ICD-10-CM F52.21 Male erectile disorder Active Diagnosis [facility] Diagnosis: ICD-10-CM K21.9 Gastro-esophageal reflux disease without esophagitis Active Diagnosis [facility] Medications Combined list of outpatient medications from Department of Defense and Veterans Affairs facilities.Medications provided include 1) outpatient medications from the last 15 months, and 2) patient-reported medications. Medication Details Route Status Patient Instructions Prescription Expires Prescription Number Last Dispense Date Ordering Provider Order Date Order Qty Source IBUPROFEN TAB TAKE 200 MG BY MOUTH ONCE DAILY NEEDED ORAL ACTIVE YI AZUL 2024 [facility] LORATADINE 10MG/PSEUDO EPHEDRINE SO4 240MG TAB,SA TAKE ONE TABLET BY MOUTH ONCE DAILY NEEDED ORAL ACTIVE YI AZUL 2024 [facility] OMEPRAZOLE 20MG CAP,EC TAKE ONE CAPSULE BY MOUTH ONCE DAILY FOR [facility] N ORAL ACTIVE 01/19/2026 [id number] 5 YI AZUL 2024 30 IELD OMEPRAZOLE 20MG CAP,EC TAKE 1 CAPSULE BY MOUTH ONCE DAILY ORAL ACTIVE YI AZUL spring IELD SILDENAFIL CITRATE 100MG TAB TAKE ONE TABLET BY MOUTH DIRECTED FOR ERECTILE DYSFUNCT ION TAKE 1 HOUR PRIOR TO SEXUAL ACTIVITY IN [place] OF CIALIS ORAL ACTIVE 02/17/2025 [id number] 5 YI AZUL 2024 6 IELD TADALAFIL 10MG TAB TAKE ONE TABLET BY MOUTH DIRETCED ORAL ACTIVE YI AZUL 2024 [facility] Vital Signs Combined list of inpatient and outpatient Vital Signs from Department of Defense and Veterans Affairs, ranging from 12 months to all on record, depending upon the facility. Vital Sign Value Date Comments Source SYSTOLIC BLOOD PRESSURE 134 01/18/2025 10:06:07 [facility] DIASTOLIC BLOOD PRESSURE 87 01/18/2025 10:06:07 [facility] PULSE OXIMETRY 96 01/18/2025 10:06:07 Alyssa SANTAMARIA WEIGHT 188.4 01/18/2025 10:06:07 ZEYAD STEPHENS TEMPERATURE 97.9 01/18/2025 10:06:07 GENARO BRUNO PULSE 89 01/18/2025 10:06:07 SPRIN KAT Encounters Combined list of: 1) Encounters from Department of Veterans Affairs facilities going backup to the last 18 months, not all [place] inpatient encounters are included; 2) Encounters from the Department of [facility] facilities going backup to 280 months. Location Location Details Encounter Type Encounter Number Reason For Visit Attending Provider ADM Date DC Date Status Disposition Source [facility] Outpatient Encounter [id number] 12/06 [facility]counter [id number] 12/22 [facility] Out[facility]counter [id number] 01/13 [facility]counter [id number] 01/17 [facility] Outpatient Encounter [id number] 01/18 [facility] OFFICE O/P EST MOD 30 MIN [id number] Diagnos is: ICD-10- CM K21.9 Gastro- esophag eal reflux disease without esophag itis STEVE AZUL 01/18 [facility] [place] [facility] Out[facility]counter [id number] 01/18 [facility] NQHP OL DIG ASSMT&MGMT 5-10 [id number] Diagnos is: ICD-10- CM F52.21 Male erectil e disorde r CHAIM SMYTH 01/18 [facility] Social History Combined list of available smoking, tobacco, and other social history from Department of Defense and Veterans Affairs facilities. Social History Type Response Date Comment Sourc e Tobacco smoking status NHIS [place]-TOBACCO NEVER USED CIGARETTES 01/18/2025 [facility] History of tobacco use MS-TOBACCO NEVER USED OTHER TYPE 01/18/2025 [facility] Plan of Care List of future care activities from Department of Veterans Affairs facilities. Additional future care activities may be listed in the Assessment and Plan section. Date/Time Care Activity Care Activity Detail Facili ty 01/26/2025 AMBULATORY - NONE AMBULATORY - NONE [facility]
--- OUTSIDE RECORDS SUMMARY | 2025-01-19 14:18 | XMS_ITS ---
Author Name [facility] [place] [place] Organization [facility] [place] Address [address] [place] [id number] Selected Encounter This section includes the information on record at [place] for the Encounter. Date/Time Encounter Type Encounter Description Reason Provider Source Jan 18, 2025 04:08 PM [facility] OL DIG ASSMT&MGMT 5-10 CLINICAL PHARMACY ICD-10-CM F52.21 Male erectile disorder CHAIM SMYTH E Encounter Template Text not used by CT Assessments - Encounter Diagnoses This section includes the primary and secondary diagnoses documented for the Encounter. Date/Time Primary/Secondary Diagnosis Diagnosis Name Provider Source Jan 18, 2025 04:11 PM PRIMARY Male erectile disorder CHAIM SMYTH [facility] Plan of Treatment: Future Appointments (+ 6 months) and Future Tests (+/- 45 days) The Plan of Treatment section includes future care activities for the patient from all [place] treatmentfacilities. This section includes future appointments and future orders which are active, pending or scheduled. Future Appointments This section includes appointments that were scheduled to occur 6 months from the date of the Encounter, up to a maximum of 20 appointments. The data comes from all [place] treatment facilities. Appointment Date/Time Appointment Type Appointme nt Facility Name Jan 26, 2025 01:00 PM [facility] Jan 26, 2025 01:45 PM [facility] March 08, 2025 09:45 AM [facility] - [facility] [place] March 08, 2025 10:00 AM [facility]ORY - [facility] [place] [place] Active, Pending, and Scheduled Orders This section includes a listing of several types of active, pending, and scheduled orders, including clinic medications orders, diagnostic test orders, procedure orders and consult orders; where the start date of the order is 45 days before the date of the Encounter or 45 days after the date of theEncounter. The data comes from all [place] treatment facilities. Test Date/Time Test Type Test Details Facility Name Jan 18, 2025 10:52 AM Consult Order EKG TRACIN G/SPOPC OUTPT Cons [facility] [place] Jan 18, 2025 10:52 AM Procedure Order PULMONARY FUNCTION TEST CP PULMONARY FUNCTION TEST Proc [facility] Jan 26, 2025 01:00 PM Imaging - Ultrasou nd Order KIDNEY AND BLADDER ULTRASOUND [place] Jan 26, 2025 01:45 PM Imaging - General Radiology Order CHEST (3 VIEWS) [facility] Social History: Smoking Status (Most current) and Tobacco Use (All prior to encounter date) This section includes the most current, and the historical, smoking and tobacco- related health factors from the [place] facility where the Encounter took place. Current Smoking Status This section includes the most current smoking, or tobacco-related health factor, from the [place] facility where the Encounter took place. Date/Time Current Smoking Status Comment Facil ity Jan 18, 2025 10:[address]-TOBACCO NEVER U SED CIGARETTES [facility] Tobacco Use History This section includes a history of the smoking, or tobacco-related health factors, that were collected on or before the date of the Encounter. The data comes from the [place] facility where the Encounter took place. Date/Time Smoking Status/Tobacco Use Comment F acility Jan 18, 2025 10:[address]-TOBACCO NEVER U SED OTHER TYPE [facility] Encounter Notes: All associated encounter notes This section contains the clinical notes associated to the Encounter. Date/Time Encounter Note(s) Provider Source Jan 18, 2025 04:08 PM PHARMACY CONSULT: LOCAL TITLE: CONSULT REPORT/PRIOR [facility] FACILITY PADR STANDARD TITLE: PHARMACY CONSULT DATE OF NOTE: JAN 18, 2025@16:08 ENTRY DATE: JAN 18, 2025@16:08:45 AUTHOR: CHAIM SMYTH COSIGNER: URGENCY: STATUS: COMPLETED The medical record has been reviewed with regard to this restricted drug request. Medication requested: TADALAFIL 10MG TAB Medication indication: ED Medical history relevant to this request: Pt does not have hx of trying preferred formulary medication: sildenafil. Please consider having pt trial. The request does not meet criteria - The preferred alternative therapeutic option(s) have not been exhausted time spent: 5 mins /gerald/ CHAIM SMYTH PHARMD,BCPS CLINICAL PHARMACY PRACTITIONER Signed: 01/18/2025 16:11 CHAIM SMYTH [facility]
--- OUTSIDE RECORDS SUMMARY | 2025-01-19 14:18 | XMS_ITS | Patient Health Record ---
Author Organization [facility] Address [address] [place] [address] Care Team Providers Care Cartridge Maker Name Role Phone Ketan Acevedo MD Primary Care Provider Virgilio Franco Jr Unavailable Allergies Allergen (clinical drug ingredient) Drug/Non Drug [...] Problem Status W/U Status Risk Notes Problem 501380025 Colon cancer screening (Z12.11) Active confirmed Problem Esophageal reflux (985957251) Esophageal reflux (K21.9) Active confirmed Problem Dysphagia (21344038) Dysphagia (R13.10) Active confirmed Problem 52002685 Dysphagia, unspecified type (R13.10) Active confirmed Problem 102658906 Gastroesophageal reflux disease, unspecified whether esophagitis present (K21.9) Active confirmed Plan Of Treatment Future Test Test Name Order Date UPPER GI ENDOSCOPY 02/09/2023 COLONOSCOPY 02/09/2023 Insurance Providers Payer Name Payer Address Payer Phone Subscriber Number Group Number Insured Name Patient Relationship to Insured Coverage Start Date Coverage End Date [facility] [address] [place] [phone] [id number] KENNEDY LANDRY Self - patient is the insured Medical (General) History Surgical History Surgery Date(Month/Year)
--- OUTSIDE RECORDS SUMMARY | 2025-01-19 14:18 | XMS_ITS | Encounter Summary ---
Author Name [facility] [place] Organization [facility] ([place]) Address [address] [place] [id number] Selected Encounter This section includes the information on record at [place] for the Encounter. Date/Time Encounter Type Encounter Description Reason Provider Source Jan 18, 2025 10:00 AM OFFICE O/P EST MOD 30 MIN PRIMARY CARE/MEDICINE ICD-10-CM K21.9 Gastro-esophageal reflux disease without esophagitis JAVIER AZUL Encounter Template Text not used by [place] Assessments - Encounter Diagnoses This section includes the primary and secondary diagnoses documented for the Encounter. Date/Time Primary/Secondary Diagnosis Diagnosis Name Provider Source Jan 18, 2025 11:14 AM PRIMARY Gastro-esophageal reflux disease without esophagitis JAVIER AZUL Jan 18, 2025 11:14 AM SECONDARY Contact with and exposure to other hazardous substances JAVIER AZUL Jan 18, 2025 11:14 AM SECONDARY Male erectile dysfunction, unspecified JAVIER AZUL Jan 18, 2025 11:14 AM SECONDARY Post-traumatic stress disorder, unspecified JAVIER AZUL Plan of Treatment: Future Appointments (+ 6 months) and Future Tests (+/- 45 days) The Plan of Treatment section includes future care activities for the patient from all [place] treatmentfacilities. This section includes future appointments and future orders which are active, pending or scheduled. Future Appointments This section includes appointments that were scheduled to occur 6 months from the date of the Encounter, up to a maximum of 20 appointments. The data comes from all [place] treatment facilities. Appointment Date/Time Appointment Type Appointme nt Facility Name Jan 26, 2025 01:00 PM [facility] Jan 26, 2025 01:45 PM [facility] March 08, 2025 09:45 AM [facility] March 08, 2025 10:00 AM [facility] Active, Pending, and Scheduled Orders This section includes a listing of several types of active, pending, and scheduled orders, including clinic medications orders, diagnostic test orders, procedure orders and consult orders; where the start date of the order is 45 days before the date of the Encounter or 45 days after the date of theEncounter. The data comes from all [place] treatment facilities. Test Date/Time Test Type Test Details Facility Name Jan 18, 2025 10:52 AM Consult Order EKG TRACIN G/SPOPC OUTPT Cons Licensed Certified Orthotist[facility] [place] Jan 18, 2025 10:52 AM Procedure Order PULMONARY FUNCTION TEST CP PULMONARY FUNCTION TEST Proc Licensed Certified Orthot[facility] Jan 26, 2025 01:00 PM Imaging - Ultrasou nd Order KIDNEY AND BLADDER ULTRASOUND [place] Jan 26, 2025 01:45 PM Imaging - General Radiology Order CHEST (3 VIEWS) [place] Vital Signs: All taken on the encounter date This section contains inpatient and outpatient Vital Signs collected on the date of the Encounter. Date/Time Temperature Pulse Blood Pressure Respiratory Rate SP02 Pain Height Weight Body Mass Index Source Jan 18, 2025 10:06 AM 97.9 89 134/87 96 188.4 [facility] Encounter Notes: All associated encounter notes This section contains the clinical notes associated to the Encounter. Date/Time Encounter Note(s) Provider Source Jan 18, 2025 10:09 AM PHYSICIAN TEDDY T NOTE: LOCAL TITLE: JARED NOTE STANDARD TITLE: PHYSICIAN FLOORING HELPER NOTE DATE OF NOTE: JAN 18, 2025@10:09 ENTRY DATE: JAN 18, 2025@10:09:05 AUTHOR: JAVIER AZUL EXP COSIGNER: URGENCY: STATUS: COMPLETED S - 54 y/o M Allergy: NKAM (seasonal allergies); MEDS: see below CC: new pt initial eval HPI: see Problem List PMH: neg CAD/AMI neg HTN neg PVD or PAD neg COPD neg Asthma +SOB - Cause??? Has Private PCP; No Action Undertaken to Address c/o SOB neg Hepatic Disorders neg Renal Disorders neg CVA/TIA neg Seizures neg Chronic Coagulopathy neg PUD, UGI Bleed neg Anemia, Excess Bleeding, Easy Bruising neg Blood Transfusions neg DM neg Thyroid Disorders +/-BPH any Signif Infectious Diseases? No like TB/HIV/HEP B or C OA - h/o knee problems never CA of any kind PSH: see Problem list ROS: denies fever, night sweats denies unintended changes WT/appetite denies new fatigue denies new chest pain denies new dyspnea/SOB denies new mental staus changes (or TIA Sx) denies ABD pain denies N/V/D denies chronic or bloody diarrhea denies (chronic) constipation +frequency, incomplete emptying bladder denies melena, hematochezia denies new skin lesions or rashes FH: +CAD (mother, brother) neg DM neg CRC neg Prostate CA +Lung CA (mother, father) Mil Hx: [employer] 1989 - 2009 MOS - [employer] - [place], [place], [place] WIA - never TBI - no [place]: [employer] SH: O - coop A&Ox3 NAD W-N/H/D VS: Stable HEENT: Eyes - PERRL, anicteric OU Ears - EAC clear AU TM clear AU Oropharynx - no petechiae, uvula midline NECK: no adeno no bruits PUL: Resp full, reg, unlabored; CTA B/L; no wheeze COR: RRR, no M ABD: no distention no bruits no tenderness no mass/megaly RECTAL: Prostate firm, contour smooth, lobes symmetric, no nodules is non-tender EXT: no LLE or calf tenderness INTEG: NL texture/turgor NAILS: no clubbing no spooning LABS: not done yet A/P - 1) Normotensive 2) C/V Stable - never TX 3) Neuro Stable - never CVA/TIA 5) Normoglycemic 6) Coagulopathy - No 7) Non-Descript SOB w/ Activity No Associ Angina - RADS: CXR - CON: PFT's EKG 8) Bladder Outlet Obstruct - RADS: US of Bladder, Renals 9) ED - CON: Non-Form Request for Cialis Because Is Already On It (don't change stuff that works) 10) PTSD - already sees somebody outside; he's happy w/ that person MEDS: Reconciled - has list RTC MARCH 05 - sooner prn Review LABS, RADS, PFT's Toxic Exposure Screening: The /caregiver was asked if they believe the experienced any toxic exposure(s), such as Airborne Hazards and Open Burn Pit, [place] War related exposures, Agent [place]tner, Radiation, contaminated water at [employer] or other such exposures, 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 Printed information was offered and provided if desired. Other exposures: Comment: jet fiels solvents Valentine/caregiver was made aware of educational resources and printed information was offered and provided if desired. Valentine/caregiver has health or medical concerns related to their concern of environmental exposure. Question: na Benefits/Claims Questions Valentine/caregiver was informed of local point of contact. Contact information for local resources: Benefits/Claim for Disability Compensation Questions:National VBA [place] Healthcare Enrollment: [facility] Eligibility direct dialed at [phone] Registry: [facility] Coordinator ext [phone] The following connections were provided to the /caregiver: Veterans Benefits Administration (VBA) for Benefits/claims: Suicide Screen: C-SSRS Screening [place]-Suicide Severity Rating Scale (C-SSRS Screener) 1. Over the past month, have you wished you were or wished you could go to sleep and not wake up? No 2. Over the past month, have you had any actual thoughts of killing yourself? No 3. Over the past month, have you been thinking about how you might do this? Response not required due to responses to other questions. 4. Over the past month, have you had these thoughts and had some intention of acting on them? Response not required due to responses to other questions. 5. Over the past month, have you started to work out or worked out the details of how to kill yourself? Response not required due to responses to other questions. 6. If yes, at any time in the past month did you intend to carry out this plan? Response not required due to responses to other questions. 7. In your lifetime, have you ever done anything, started to do anything, or prepared to do anything to end your life (for example, collected pills, obtained a gun, gave away valuables, went to the roof but didn't jump)? No 8. If YES, was this within the past 3 months? Response not required due to responses to other questions. Alcohol Use Screen (AUDIT-C): Alcohol Screen: SCREEN FOR ALCOHOL (AUDIT-C) An alcohol screening test (AUDIT-C) was positive (score=8). 1. How often did you have a drink containing alcohol in the past year? Consider a drink to be a 12 ounce can or bottle of regular beer, 8 ounces of malt liquor, a 5 ounce glass of table wine, or a 1.5 ounce shot of liquor (like scotch, gin, or vodka). Four or more times a week 2. How many drinks containing alcohol did you have on a typical day when you were drinking in the past year? One or two drinks 3. How often did you have six or more drinks on one occasion in the past year? Daily or almost daily Follow-Up Pos PTSD/Depression: I have reviewed the results of the Mental Health screens and have evaluated the patient. Based on the evaluation, the following disposition plan will be implemented: Patient to be evaluated by Mental Health Routine/Non-emergent Mental Health Evaluation needed. Comment: ptdss Patient to be managed in Primary Care // JAVIER AZUL PA-C STAFF PHYSICIAN FLOORING HELPER Signed: 01/18/2025 11:15 JAVIER AZUL
--- OUTSIDE RECORDS SUMMARY | 2025-01-19 14:18 | XMS_ITS | Encounter Summary ---
Author Name [facility] [place] [facility] [place] [facility] [place] Address [address] [place], [place] [id number] Selected Encounter This section includes the information on record at [place] for the Encounter. Date/Time Encounter Type Encounter Description Reason Pro vider Source Jan 18, 2025 10:06 AM Outpatient Encounter PRIMARY CARE/MEDICINE IHE Encounter Template Text not used by [place] Plan of Treatment: Future Appointments (+ 6 months) and Future Tests (+/- 45 days) The Plan of Treatment section includes future care activities for the patient from all [place] treatmentfacilities. This section includes future appointments and future orders which are active, pending or scheduled. Future Appointments This section includes appointments that were scheduled to occur 6 months from the date of the Encounter, up to a maximum of 20 appointments. The data comes from all [place] treatment facilities. Appointment Date/Time Appointment Type Appointme nt Facility Name Jan 26, 2025 01:00 PM AMBULATORY - NONE [facility] Jan 26, 2025 01:45 PM AMBULATORY - NONE [facility] March 08, 2025 09:45 AM [facility]ATORY - MEDICINE [facility] March 08, 2025 10:00 AM AM[facility]UL[facility]ORY [facility] Active, Pending, and Scheduled Orders This section includes a listing of several types of active, pending, and scheduled orders, including clinic medications orders, diagnostic test orders, procedure orders and consult orders; where the start date of the order is 45 days before the date of the Encounter or 45 days after the date of theEncounter. The data comes from all [place] treatment facilities. Test Date/Time Test Type Test Details Facility Name Jan 18, 2025 10:52 AM Consult Order EKG TRACIN G/SPOPC OUTPT Cons [facility] Jan 18, 2025 10:52 AM Procedure Order PULMONARY FUNCTION TEST CP PULMONARY FUNCTION TEST Proc [facility] Jan 26, 2025 01:00 PM Imaging - Ultrasou nd Order KIDNEY AND BLADDER ULTRASOUND [facility] Jan 26, 2025 01:45 PM Imaging - General Radiology Order CHEST (3 VIEWS) [facility] Social History: Smoking Status (Most current) and Tobacco Use (All prior to encounter date) This section includes the most current, and the historical, smoking and tobacco- related health factors from the [place] facility where the Encounter took place. Current Smoking Status This section includes the most current smoking, or tobacco-related health factor, from the [place] facility where the Encounter took place. Date/Time Current Smoking Status Comment Facil ity Jan 18, 2025 10:06 AM [place]-TOBACCO NEVER [place] SED CIGARETTES [facility] Tobacco Use History This section includes a history of the smoking, or tobacco-related health factors, that were collected on or before the date of the Encounter. The data comes from the [place] facility where the Encounter took place. Date/Time Smoking Status/Tobacco Use Comment F acility Jan 18, 2025 10:06 AM [place]-TOBACCO NEVER U SED OTHER TYPE [facility] Encounter Notes: All associated encounter notes This section contains the clinical notes associated to the Encounter. Date/Time Encounter Note(s) Provider Source Jan 18, 2025 10:06 AM PREVENTIVE MEDICIN E NURSING NOTE: LOCAL TITLE: CLINICAL REMINDERS/NURSING STANDARD TITLE: PREVENTIVE MEDICINE NURSING NOTE DATE OF NOTE: JAN 18, 2025@10:06 ENTRY DATE: JAN 18, 2025@10:06:57 AUTHOR: SHANNAN COX COSIGNER: URGENCY: STATUS: COMPLETED Suicide Screen: C-SSRS Screening Lee Suicide Severity Rating Scale (C-SSRS) screener 1. Over the past month, have you [...] required due to responses to other questions. 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 Printed information was offered and provided if desired. Fuel: Comment: JP4 JP8 Etoile/caregiver was made aware of educational resources and printed information was offered and provided if desired. No questions at this time /caregiver was informed of local points of contact. Contact information for local resources: Benefits/Claim for Disability Compensation Questions:National VBA [place] Healthcare Enrollment: [facility] Eligibility direct dialed at [phone] Registry: [facility] Coordinator ext [phone] Toxic Exposure Screening Follow-Up reminder is needed. Name of person notified: JAVIER COLEMAN BMI>30/>24.99 High Risk: Patient declines to discuss weight management. Patient declined weight discussion. Discussed revisiting at a future visit. Homelessness/Food Insecurity Screen: In the past 2 months, have you been living in stable housing that you own, rent, or stay in as part of a household? Yes - Living in stable housing. Are you worried or concerned that in the next 2 months you may NOT have stable housing that you own, rent, or stay in as part of a household? No - Not worried about housing near future The reports the following: Within the past 12 months, you worried whether your food would run out before you got money to buy more. Never true Within the past 12 months, the food you bought just didn't last and you didn't have money to get more. Never true Avg Risk Colorectal Cancer Screen: AVERAGE RISK colorectal cancer screening is due based on information available to this clinical reminder Patient declined screening/surveillance. Comment: patient choice Patient educated on the benefits of colorectal cancer screening/surveillance and the risk if screening/surveillance is not completed. Depression Screening: Perform PHQ-2 A PHQ-2 screen was performed. The score was 2 which is a negative screen for depression. Over the past two weeks, how often have you been bothered by the following problems? 1. Little interest or pleasure in doing things Several days 2. Feeling down, depressed, or hopeless Several days Screen for Embedded Fragments: SCREEN FOR EMBEDDED FRAGMENTS The patient reports no embedded fragments. Hepatitis B Serology/Immunization: The patient declines to have HBV serology done. Reason: patient choice Hepatitis C Testing: Patient declines HCV lab test. Reason: patient choice MST Screening: Patient denies experiencing sexual trauma (MST). Preferred Language: What is your, or your caregiver's preferred language for healthcare? Preferred Language: Latvian PTSD Screening: PC-PTSD-5 A PTSD screening test (PC-PTSD-5) was positive (score=5). IN THE PAST MONTH, have you ever had any experience that was so frightening, horrible or traumatic. For example: A serious accident or fire a physical or sexual assault or abuse An earthquake or flood A war Seeing someone be killed or seriously injured Having a loved one through homicide or suicide 1. Have you ever experienced this kind of event? YES 2. Had nightmares about the event(s) or thought about the event(s) when you did not want to? YES 3. Tried hard not to think about the event(s) or went out of your way to avoid situations that reminded you of the event(s)? YES 4. Been constantly on guard, watchful, or easily startled? YES 5. Independence numb or detached from people, activities, or your surroundings? YES 6. Independence guilty or unable to stop blaming yourself or others for the event(s) or any problems the event(s) may have caused? YES Licensed Independent Provider notified of positive screen and need for follow-up. Name of provider notified: JAVIER COLEMAN Per Etoile already recieving [facility] health assistance. seeing outside mental health provider for the past 2 years. Declinced referal at this time, not needed. 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 1. The E[place]ile experienced the following events during deployment: Patient denies experiencing any TBI related events during deployment. Negative Screen Tobacco Use Screening: The patient has never smoked cigarettes. The patient has never used other types of tobacco. Influenza Immunization: Patient educated on the need for receiving influenza immunization either at [facility] or outside facility. Alcohol Use Screen (AUDIT-C): Alcohol Screen: SCREEN FOR ALCOHOL (AUDIT-C) An alcohol screening test (AUDIT-C) was negative (score=4). 1. How often did you have a [...] on one occasion in the past year? Never COVID-19 Immunization: Patient educated on the need for receiving COVID-19 (SARS-CoV-2) immunization either at [facility] or outside facility. Tdap Immunization: Patient educated on the need for receiving Tdap immunization either at [facility] or outside facility. Herpes Zoster (Shingles) Vaccine: Patient educated on the need for receiving Herpes Zoster (Shingles) immunization either at [facility] or outside facility. Sexual Orientation: The patient thinks of their sexual orientation as: Reminder deferred for this visit. RHS Screen: RHS Screen Environmental Check Upon inquiry, the individual reports that the environment is safe to proceed. Informed Consent to Screen and Document The individual consents to proceed with screening. The individual consents to documentation of responses. PRIMARY SCREEN: In the past 12 months, how often did a current or former intimate partner (e.g., boyfriend, girlfriend, , , sexual partner): 1. Scream or curse at you Never 2. Insult or talk down to you Never 3. Threaten you with harm Never 4. Physically hurt you Never 5. Force or pressure you to have sexual contact against your will, or when you were unable to say no Never ?? The HITS tool (items 1-4 above) is [place] copyright protected by Jonathan Ac MD, and the user has full rights to use it throughout the [place] system. PRIMARY SCREEN RESULT: The Primary Screen is NEGATIVE. The individual answered never to all forms of IPV above (i.e., answered never to all 5 items) The individual accepts education and/or resources: No EDUCATION: The individual indicated readiness to learn. Education offered during this session as noted above. The individual indicated understanding by asking relevant questions and making appropriate comments. No barriers to learning were observed or identified. /gerald/ SHANNAN COX LPN LPN Signed: 01/18/2025 10:16 SHANNAN COX TAFT
--- OUTSIDE RECORDS SUMMARY | 2025-01-19 14:18 | XMS_ITS | Encounter Summary ---
Author Name [facility] [place] [facility] [place] [facility] [place] Address [address] [place], [place] [id number] Selected Encounter This section includes the information on record at [place] for the Encounter. Date/Time Encounter Type Encounter Description Reason Pro vider Source Jan 17, 2025 08:40 AM Outpatient Encounter PRIMARY CARE/MEDICINE IHE Encounter Template Text not used by [place] Plan of Treatment: Future Appointments (+ 6 months) and Future Tests (+/- 45 days) The Plan of Treatment section includes future care activities for the patient from all [place] treatmentfacilities. This section includes future appointments and future orders which are active, pending or scheduled. Future Appointments This section includes appointments that were scheduled to occur 6 months from the date of the Encounter, up to a maximum of 20 appointments. The data comes from all [place] treatment facilities. Appointment Date/Time Appointment Type Appointme nt Facility Name Jan 18, 2025 10:00 AM [facility] Jan 26, 2025 01:00 PM AMBULATORY - NONE [facility] Jan 26, 2025 01:45 PM AMBULATORY - NONE [facility] March 08, 2025 09:45 AM [facility] March 08, 2025 10:00 AM AMBULATORY - MEDICINE [facility] Active, Pending, and Scheduled Orders This section includes a listing of several types of active, pending, and scheduled orders, including clinic medications orders, diagnostic test orders, procedure orders and consult orders; where the start date of the order is 45 days before the date of the Encounter or 45 days after the date of theEncounter. The data comes from all [place] treatment facilities. Test Date/Time Test Type Test Details Facility Name Jan 18, 2025 10:52 AM Consult Order EKG TRACIN G/SPOPC OUTPT Cons [facility] Jan 18, 2025 10:52 AM Procedure Order PULMONARY FUNCTION TEST CP PULMONARY FUNCTION TEST Proc [facility] Jan 26, 2025 01:00 PM Imaging - Ultrasou nd Order KIDNEY AND BLADDER ULTRASOUND [place] Jan 26, 2025 01:45 PM Imaging - General Radiology Order CHEST (3 VIEWS) [facility] Encounter Notes: All associated encounter notes This section contains the clinical notes associated to the Encounter. Date/Time Encounter Note(s) Provider Source Jan 17, 2025 08:42 AM ADMINISTRATIVE NOT E: LOCAL TITLE: ADMINISTRATIVE NOTE STANDARD TITLE: ADMINISTRATIVE NOTE DATE OF NOTE: JAN 17, 2025@08:42 ENTRY DATE: JAN 17, 2025@08:42:18 AUTHOR: ANA PARISH EXP COSIGNER: URGENCY: STATUS: COMPLETED ADMINISTRATIVE NOTE Has ADDENDA AMSA--Please obtain Colonoscopy & Pathology results dated 03/17/2023 from [facility] and last Eye exame report from [facility] 12/23/2024. Thanks /gerald/ Ana Parish RN Registered Nurse (RN) Signed: 01/17/2025 08:44 Receipt Acknowledged By: 01/19/2025 13:23 /gerald/ SLAVA MORRISON Advanced Interventional Cardiologist 01/19/2025 ADDENDUM STATUS: COMPLETED Medical records requested /gerald/ SLAVA MORRISON Advanced Interventional Cardiologist Signed: 01/19/2025 13:24 ANA PARISH [place]
== END 2025-01-19 12:19 | disposition home or self-care (01) ==
LOC: HO.HOS 11:43
PROVIDERS: PCP Internal Medicine; Visit Provider Physician Assistant
DX: S83.241A Other tear of medial meniscus, current injury, right knee, initial encounter (principal); Z98.890 Other specified postprocedural states
CPT/HCPCS: 99024

== ENCOUNTER → 2025-01-19 11:43 | Outpatient (BNVA) | payer OTHER, SELFPAY | PROVIDERS: PCP Internal Medicine; Visit Provider Physician Assistant | DX: Z47.89 Encounter for other orthopedic aftercare (principal); S83.241D Other tear of medial meniscus, current injury, right knee, subsequent encounter; Z98.890 Other specified postprocedural states | CPT/HCPCS: 99212 ==